=== PATIENT | male | born 1965 | race Caucasian/White ===

== ENCOUNTER 2016-07-14 15:12 | Emergency (ER) | payer MEDICAID, OTHER ==
[~2016-07-14] VITALS: Ht 175.3 cm; Wt 78.0 kg
[2016-07-14 15:16] VITALS: BP_SYST 129
[2016-07-14] MEDS ORDERED: MECLIZINE HCL 25 MG TABLET (ANITVERT) PO ONE (20:00)
[2016-07-14] MEDS ORDERED: NACL 0.9% 1,000 ML IV ONE (20:00)
[2016-07-14 20:19] LABS: BASOPHILS # (AUTO) 0.1 K/uL (0.0-0.2); BASOPHILS % (AUTO) 2.1 % (0.0-2.0); EOSINOPHILS # (AUTO) 0.1 K/uL (0.0-0.4); EOSINOPHILS % (AUTO) 1.1 % (0.0-4.0); HEMATOCRIT 47.8 % (36-54); HEMOGLOBIN 15.9 g/dL (14.0-18.0); LYMPHOCYTES # (AUTO) 1.1 K/uL (1.0-5.5); LYMPHOCYTES % (AUTO) 17.4 % (20.5-51.5); MEAN CORPUSCULAR HEMOGLOBIN 32 pg (27-31); MEAN CORPUSCULAR HGB CONC 33 % (32-36); MEAN CORPUSCULAR VOLUME 96 fL (79.0-98.0); MONOCYTES # (AUTO) 0.5 K/uL (0.0-1.0); MONOCYTES % (AUTO) 7.6 % (1.7-9.3); NEUTROPHILS # (AUTO) 4.5 K/uL (1.8-7.7); NEUTROPHILS % (AUTO) 71.8 % (40.0-70.0); PLATELET COUNT (AUTO) 265 K/uL (130-430); RED BLOOD CELL COUNT(AUTO) 4.97 MIL/uL (4.2-6.2); RED CELL DISTRIBUTION WIDTH 12.1 % (9.0-15.0); WHITE BLOOD COUNT (AUTO) 6.3 K/uL (4.8-10.8)
[2016-07-14 20:40] LABS: CALCIUM 9.2 mg/dL (8.4-11.0); CREATININE 0.83 mg/dL (0.55-1.30)
[2016-07-14 20:43] LABS: INR 0.9 (0.80-1.20)
[2016-07-14 20:47] LABS: ALBUMIN 3.9 g/dL (3.4-4.8); TOTAL BILIRUBIN 1.4 mg/dL (0.0-1.0)
[2016-07-14 22:11] VITALS: BP_SYST 117
== END 2016-07-14 22:11 | disposition home or self-care (01) ==
LOC: SED 15:12
DX: R42 Dizziness and giddiness (principal); R03.0 Elevated blood-pressure reading, without diagnosis of hypertension
CPT/HCPCS: 36415; 70450; 80053; 85025; 85610; 85730; 96360; 99285; J7030; J8597

== ENCOUNTER 2020-12-26 21:26 | Emergency (ER) | payer MEDICAID, OTHER ==
[~2020-12-26] VITALS: Ht 175.3 cm; Wt 73.0 kg
[2020-12-26 21:35] VITALS: BP_SYST 151
[2020-12-26] MEDS ORDERED: KETOROLAC TROMETHAMINE 60 MG/2 ML VIAL IM ONE (21:45)
[2020-12-26] MEDS ORDERED: ONDANSETRON 4 MG ODT TAB PO ONE (21:45)
[2020-12-26 22:09] LABS: BASOPHILS # (AUTO) 0.1 K/uL (0.0-0.2); BASOPHILS % (AUTO) 1.1 % (0.0-2.0); EOSINOPHILS # (AUTO) 0.2 K/uL (0.0-0.4); EOSINOPHILS % (AUTO) 2.4 % (0.0-4.0); HEMATOCRIT 42.9 % (36-54); HEMOGLOBIN 15.4 g/dL (14.0-18.0); LYMPHOCYTES # (AUTO) 2.2 K/uL (1.0-5.5); LYMPHOCYTES % (AUTO) 30.6 % (20.5-51.5); MEAN CORPUSCULAR HEMOGLOBIN 34 pg (27-31); MEAN CORPUSCULAR HGB CONC 36 % (32-36); MEAN CORPUSCULAR VOLUME 95 fL (79.0-98.0); MONOCYTES # (AUTO) 0.4 K/uL (0.0-1.0); MONOCYTES % (AUTO) 5.1 % (1.7-9.3); NEUTROPHILS # (AUTO) 4.3 K/uL (1.8-7.7); NEUTROPHILS % (AUTO) 60.8 % (40.0-70.0); PLATELET COUNT (AUTO) 269 K/uL (130-430); RED BLOOD CELL COUNT(AUTO) 4.55 MIL/uL (4.2-6.2); RED CELL DISTRIBUTION WIDTH 12.9 % (9.0-15.0); WHITE BLOOD COUNT (AUTO) 7.1 K/uL (4.8-10.8)
[2020-12-26 22:20] LABS: INR 0.9 (0.80-1.20); PROTHROMBIN TIME 9.7 SECS (9.5-12.5)
[2020-12-26 22:21] LABS: ANION GAP 10 (5-15); CALCIUM 9.4 mg/dL (8.4-11.0); CHLORIDE 103 mmol/L (98-107); CREATININE 0.92 mg/dL (0.55-1.30); GLUCOSE 149 mg/dL (70-99); POTASSIUM 3.3 mmol/L (3.5-5.1); SODIUM SERUM 138 mmol/L (136-145); UREA NITROGEN, BLOOD 25 mg/dL (8-21)
[2020-12-26 22:27] LABS: ALANINE AMINOTRANSFERASE 44 U/L (12-78); ALBUMIN 3.9 g/dL (3.4-4.8); AMYLASE 49 U/L (0-100); ASPARTATE AMINOTRANSFERASE 29 U/L (10-37); LIPASE 157 U/L (73-393); TOTAL BILIRUBIN 1.2 mg/dL (0.0-1.0)
[2020-12-26 22:37] LABS: GFR AFRICAN AMERICAN 110 mL/min (>90)
[2020-12-26 23:29] LABS: C-REACTIVE PROTEIN QUANT < 0.2 mg/dL (0-0.5)
[2020-12-26] MEDS ORDERED: HYDR-3917 PO (23:52)
[2020-12-26] MEDS ORDERED: NAPR-1172 PO (23:52)
[2020-12-27 00:07] VITALS: BP_SYST 118
== END 2020-12-27 00:07 | disposition home or self-care (01) ==
LOC: SED 21:26
DX: K80.20 Calculus of gallbladder without cholecystitis without obstruction (principal); Z79.899 Other long term (current) drug therapy
CPT/HCPCS: 36415; 74176; 76376; 80053; 82150; 83605; 83690; 84484; 85025; 85610; 85730; 86140; 96372; 99284; J1885; Q0162

== ENCOUNTER 2021-03-09 22:48 | Emergency (ER) | payer OTHER ==
[~2021-03-09] VITALS: Ht 175.3 cm; Wt 73.5 kg
[~2021-03-09 22:48] MED LIST: HYDR-3917 PO; NAPR-1172 PO
[2021-03-09 22:52] VITALS: BP_SYST 139
--- NOTE | 2021-03-09 22:52 | NUR ---
Patient triaged and placed in waiting room. VSS and patient appears in no acute distress at this time. Accompanied by , awaiting available bed, and MD notified of need for MSE.
--- NOTE | 2021-03-09 22:57 | NUR ---
ER examining patient in the lobby.
[2021-03-09] MEDS ORDERED: ONDANSETRON 4 MG ODT TAB PO ONE (23:00)
[2021-03-09] MEDS ORDERED: MORPHINE 4 MG INJ. 4 MG/ML VIAL IM ONE (23:00)
[2021-03-09] MEDS ORDERED: NITROGLYCERIN 0.4 MG TAB.SUBL SL ONE (23:15)
[2021-03-09] MEDS ORDERED: ASPIRIN 325 MG TABLET PO ONE (23:15)
[2021-03-10] MEDS ORDERED: HYDR-3917 PO ×2 (00:14→00:15)
--- NOTE | 2021-03-10 00:35 | NUR ---
Patient given written and verbal discharge instructions and verbalizes understanding. ER MD discussed with patient the results and treatment provided. Patient in stable condition. ID arm band removed. Rx of [place] given. Patient educated on pain management and to follow up with PMD. Pain Scale 2/10. Opportunity for questions provided and answered. Medication side effect fact sheet provided.
[2021-03-10 00:36] VITALS: BP_SYST 132
== END 2021-03-10 00:35 | disposition home or self-care (01) ==
LOC: SED 22:48
DX: R10.13 Epigastric pain (principal); Z79.899 Other long term (current) drug therapy
CPT/HCPCS: 93005; 96372; 99284; J2270; Q0162